=== PATIENT | male | born 1965 | race Two or more races ===

== ENCOUNTER 2016-08-15 10:30 | Outpatient (CLI) | payer BC, OTHER | END 2016-08-15 23:59 | disposition home or self-care (01) | LOC: WOU 10:30 | PROVIDERS: ATTEND Podiatrist Foot & Ankle Surgery | DX: E11.610 Type 2 diabetes mellitus with diabetic neuropathic arthropathy (principal); E11.42 Type 2 diabetes mellitus with diabetic polyneuropathy | CPT/HCPCS: G0463 ==